=== PATIENT | male | born 1980 | race Caucasian/White ===

== ENCOUNTER → 2016-12-05 | Outpatient (CLI) | payer OTHER ==
[2014-12-11 15:05] VITALS: BP 139/67
[~2016-12-05] MED LIST: ARIP5TAB6 PO; FLUO20CA16 PO; IBUP-1060 PO
[2016-12-05 09:07] LABS: BASO % 1 % (0-3); EOS % 3 % (0-3); HEMATOCRIT 44.9 % (39.0-53.0); HEMOGLOBIN 15.7 g/dL (13.0-17.5); LYMPH # 1.5 x10^3/uL (1.0-4.8); LYMPH % 35 % (24-48); MEAN CORPUSCULAR HEMOGLOBIN 32 pg (25-35); MEAN CORPUSCULAR HGB CONC 35 g/dL (31-37); MEAN CORPUSCULAR VOLUME 91 fL (79-100); MONO % 16 % (0-9); NEUT % 45 % (31-73); PLATELET COUNT 265 x10^3/uL (140-400); RED BLOOD COUNT 4.96 x10^6/uL (4.30-5.70); RED CELL DISTRIBUTION WIDTH 12.5 % (11.5-14.5); WHITE BLOOD COUNT 4.3 x10^3/uL (4.0-11.0)
[2016-12-05 09:31] LABS: ALBUMIN 3.9 g/dL (3.4-5.0); CREATININE 1.2 mg/dL (0.7-1.3); GFR 67.8; POTASSIUM 3.8 mmol/L (3.5-5.1); TOTAL BILIRUBIN 0.4 mg/dL (0.2-1.0); TOTAL PROTEIN 7.8 g/dL (6.4-8.2)
[2016-12-05 09:32] LABS: CHOLESTEROL/HDL RATIO 4.4
[2016-12-05 09:41] LABS: FREE T4 0.91 ng/dL (0.76-1.46)
[2016-12-05 16:17] LABS: TESTOSTERONE TOTAL 538 ng/dL (348-1197)
== END | disposition home or self-care (01) ==
LOC: LAB 08:43
PROVIDERS: ATTEND Family Medicine
DX: Z13.220 Encounter for screening for lipoid disorders (principal); Z00.01 Encounter for general adult medical examination with abnormal findings; F41.8 Other specified anxiety disorders; R68.82 Decreased libido
CPT/HCPCS: 36415; 80053; 80061; 84403; 84439; 84443; 85027

== ENCOUNTER → 2016-12-08 | Outpatient (CLI) | payer OTHER ==
[2014-12-11 15:05] VITALS: BP 139/67
--- NOTE | 2016-12-08 11:11 | RAD ---
PROCEDURE MRI lumbar spine without contrast. HISTORY Low back pain and left radiculopathy for 2 weeks. TECHNIQUE Sagittal T1, sagittal T2, sagittal STIR, axial T1, and axial T2 sequences are provided. COMPARISON None. FINDINGS There is no malalignment. There is no worrisome marrow lesion or marrow edema. There is disc desiccation at L4-L5 and L5-S1. The conus medullaris is normal in signal intensity and in position. The numbering system assumes 5 lumbar type vertebral bodies. Findings by individual level are as follows: L1-L2 through L3-L4: There is no canal or foraminal compromise. L4-L5: There is a diffuse disc bulge and tiny central annular fissure. There is facet hypertrophy which is minimal. There is no canal stenosis. There is minimal foraminal narrowing. L5-S1: In addition to a diffuse disc bulge there is a left paracentral protrusion measuring 17 millimeters at the base in 3-4 millimeters in height. There is left lateral recess narrowing and the left S1 nerve root is compressed. There is minimal left foraminal narrowing. IMPRESSION Degenerative disc disease at L4-L5 and L5-S1. This includes a herniation L5-S1 narrowing the left lateral recess and compressing the S1 nerve root. Electronically signed by: Ramon Brumfield MD (December 08, 2016 11:10:28)
== END | disposition home or self-care (01) ==
LOC: MRI 11:39
PROVIDERS: ATTEND Family Medicine
DX: M51.36 Other intervertebral disc degeneration, lumbar region (principal); M51.37 Other intervertebral disc degeneration, lumbosacral region
CPT/HCPCS: 72148

== ENCOUNTER → 2017-01-11 | Outpatient (CLI) | payer OTHER ==
[2014-12-11 15:05] VITALS: BP 139/67
[~2017-01-11] MED LIST changes: +ARIP5TAB13 PO; -ARIP5TAB6 PO; +CITA40TA5 PO; +HYDR-2766 PO; +IBUP1TAB84 PO; +IOHEXOL 180 MG/ML 10 ML VIAL. ONE; +METH-37 PO; +methylPREDNISolone ACETATE 40 MG/ML VIAL. ONE; +methylPREDNISolone ACETATE 80 MG/ML VIAL. ONE
--- NOTE | 2017-01-12 03:48 | PAIN ---
DATE OF SERVICE: 01/11/2017 INITIAL CONSULTATION CHIEF COMPLAINT: Low back and left lower extremity pain. HISTORY OF PRESENT ILLNESS: This is a 36-year-old male who presents with history of pain for about 2 months without any specific injury or action that he is aware of, but has had pain similar to this in the past, but it has always cleared up after a few days or a week, but at this time, it is not clearing up significantly. The patient reports it is in the low back, radiating to the posterior gluteus, posterior lateral thigh, lateral thigh, posterior lower leg and into the lateral calf as well. The patient reports it is constant, sharp, throbbing, shooting, radiating with numbness and tingling, aching, changes during the day, worse with activity, worse with standing and walking. He has not had any weakness in the lower extremity or loss of motor function, but significant fatigability with the left leg compared to the right. The patient reports that he has taken hydrocodone as well as methocarbamol and also some ibuprofen, which all did decrease the pain, but he is having to take 3 or 4 hydrocodone at a time as well as 3 or 4 methocarbamol at a time to get any decreased pain. The patient has had physical therapy in the past. He has been doing the exercises, stretching and walking, the best he can recently, but without decrease in the pain. The patient rates his disability rating from 0 to 10, 10 being the worst, as a 7 with family and home responsibilities, 6 with recreation, 4 with occupation and social activity as well as sexual behavior and self-care and 2 with life support activities. The patient did have MRI scan of the lumbar spine, showing degenerative disk disease at L4-L5 and L5-S1 with a herniation at L5-S1, narrowing of the left lateral recess and compressing the S1 nerve root. PAST MEDICAL HISTORY: Significant for only 12-pound weight loss recently as he has been trying to lose weight and hernia repair, inguinal, in 2014. Otherwise, the patient has been in good health. CURRENT MEDICATIONS: Include citalopram, Robaxin, Duexis and hydrocodone. ALLERGIES: The patient has no known drug allergies. FAMILY HISTORY: Significant for no major medical problems or conditions that he is aware of. SOCIAL HISTORY: The patient does not smoke. Drinks alcohol occasionally. He is , lives with his spouse, has 2 children living at home and lives in [place], [place]. REVIEW OF SYSTEMS: The patient's review of systems is positive for those items mentioned in the history of present illness. All systems reviewed and otherwise negative. It is complete, full, and well documented on the patient's chart. PHYSICAL EXAMINATION: VITAL SIGNS: Today, the patient's blood pressure is 133/84, pulse 75, respirations 18, temperature 98.2 degrees Fahrenheit, height is 6 feet 3 inches, weight is 221 pounds. GENERAL: The patient is awake, alert, oriented, appropriate, very pleasant demeanor. The patient is accompanied by his spouse. HEENT: Shows normocephalic and atraumatic. Extraocular movements are intact and symmetrical. Oral cavity shows mucous membranes are moist and pink. Dentition is intact. NECK: Shows anterior throat supple without palpable lymphadenopathy noted. Swallow reflex is symmetrical. CHEST: Shows normal on inspection. Breath sounds are clear to auscultation bilaterally. HEART: Shows S1 and S2 clear. ABDOMEN: Soft, nontender, nondistended. No palpable organomegaly. No new rebound or guarding demonstrated. BACK: The patient's back shows spine grossly in the midline. Normal-appearing cervical lordotic curvature, thoracic kyphotic curvature, and lumbar lordotic curvature. No previous bruises, lesions, rashes or scars are noted. Lumbar paraspinous musculature shows symmetrical on inspection; with palpation, it shows only some mild tenderness with palpation in the low lumbar distribution bilaterally but without radiation. No tenderness over the spinous processes, sacrum or sacroiliac regions. The patient shows good rotational motion of the lumbar spine, both laterally greater than 10 degrees right and left as well as extension greater than 10 degrees, forward flexion 45 degrees without difficulty or pain reported. EXTREMITIES: Lower extremities show deep tendon reflexes at 2+ in the patellar and 1+ tendo calcaneus tendons and are equal. Motor exam is strong with 5/5 dorsiflexion, extension, quadriceps and hamstring flexion. Peripheral pulses are 2+ posterior tibial and dorsalis pedis pulses. No peripheral edema is noted. No clubbing. No cyanosis. Lower extremities are warm and dry to touch, equal in color and appearance. The patient is able to stand, stand on his toes without difficulty or loss of balance, walking with a normal-appearing gait, not using any assistive devices to ambulate. IMPRESSION: 1. This is a 36-year-old male with approximately 2-month history of increasing low back and left lower extremity pain in a radicular fashion. 2. MRI scan of the lumbar spine as noted. PLAN: Options were discussed with the patient and the patient's spouse including conservative medical management, physical therapy, interventional techniques. He would like to pursue with interventional techniques. We discussed a lumbar epidural steroid injection using description as well as anatomical models to describe the procedure. Risks were then discussed including but not limited to bleeding, infection, possibility of epidural hematoma, subsequent neurologic compromise, dural puncture, headaches, spinal cord and/or nerve damage, side effects of steroid medication and poor results regarding pain control. The patient understands and wishes to proceed. The patient will return to the clinic in approximately 2 weeks for followup. He was counseled on his return appointment, activity level and side effects to be aware of. DIAGNOSIS: Lumbar radiculopathy with lumbar degenerative disk disease and lumbar herniated disk. PROCEDURE: Lumbar epidural steroid injection in translaminar approach at the L5-S1 level using C-arm fluoroscopic guidance under sterile prep and drape using local anesthetic. MEDICATION INJECTED: Depo-Medrol 120 mg plus 10 mL of preservative-free normal saline and 2 mL of Isovue for contrast. CONDITION AT DISCHARGE: Stable. The patient tolerated the procedure well, had no complications. JARED BLANC MD DR: JONI/alejandro JOB#: [id number] / [id number] JOEL Davis MD
== END | disposition home or self-care (01) ==
LOC: PNCL 10:39
PROVIDERS: ATTEND Anesthesiology
DX: M51.16 Intervertebral disc disorders with radiculopathy, lumbar region (principal); Z72.89 Other problems related to lifestyle
CPT/HCPCS: 62323; J1030; J1040

== ENCOUNTER → 2017-01-25 | Outpatient (CLI) | payer OTHER ==
[2014-12-11 15:05] VITALS: BP 139/67
[~2017-01-25] MED LIST changes: -IOHEXOL 180 MG/ML 10 ML VIAL. ONE; -methylPREDNISolone ACETATE 40 MG/ML VIAL. ONE; -methylPREDNISolone ACETATE 80 MG/ML VIAL. ONE
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
== END | disposition home or self-care (01) ==
LOC: PNCL 10:50
PROVIDERS: ATTEND Anesthesiology
DX: M51.16 Intervertebral disc disorders with radiculopathy, lumbar region (principal); M51.26 Other intervertebral disc displacement, lumbar region
CPT/HCPCS: 99212

== ENCOUNTER → 2017-02-09 | Outpatient (CLI) | payer OTHER ==
[2014-12-11 15:05] VITALS: BP 139/67
[~2017-02-09] MED LIST changes: +IOHEXOL 180 MG/ML 10 ML VIAL. ONE; +methylPREDNISolone ACETATE 40 MG/ML VIAL. ONE; +methylPREDNISolone ACETATE 80 MG/ML VIAL. ONE
== END | disposition home or self-care (01) ==
LOC: PNCL 09:32
PROVIDERS: ATTEND Anesthesiology
DX: M51.36 Other intervertebral disc degeneration, lumbar region (principal)
CPT/HCPCS: 62323; J1030; J1040

== ENCOUNTER → 2017-02-23 | Outpatient (CLI) | payer OTHER ==
[2014-12-11 15:05] VITALS: BP 139/67
--- NOTE | 2017-02-24 01:43 | PAIN ---
DATE OF SERVICE: 02/23/2017 PROGRESS NOTE FOR PAIN CLINIC DIAGNOSES: Lumbar radiculopathy with lumbar degenerative disk disease, lumbar herniated disk. HISTORY OF PRESENT ILLNESS: The patient is a 36-year-old male who returns for followup status post lumbar epidural steroid injections x 2. The patient reports about 75% improvement overall with no further radiation in to his left leg and no stabbing, shooting pain in the left leg. He has some significant pain; however, across the low back and he has been noticing some pain on the right side lately with some positioning and moving when he first gets up in the morning. The patient reports the pain is anywhere from a 5 to an 8 on a scale of 10, averaging about 7 and it is 5 on a scale of 10 today. The patient reports it is aching, sharp, stabbing and constant in the low back. Again, no further radiation to the left lower extremity, but across the low back and more noticeable on the right side in the low back, which is worse with sitting, but better with activity and motion as well as stretching of the low back. The patient reports no new motor or sensory deficits, no new bowel or bladder incontinence or other complaints. The patient is sleeping about 6-8 hours a night, but occasionally he repositions secondary to the pain to maintain sleep. PHYSICAL EXAMINATION: VITAL SIGNS: Today, the patient's blood pressure is ____, pulse 101, respirations are 18, temperature is 97.9 degrees Fahrenheit. Height is 6 feet 3 inches, weighs 218 pounds. GENERAL: The patient is awake, alert, oriented, appropriate, very pleasant demeanor. HEENT: Head shows normocephalic, atraumatic. Extraocular movements are intact and symmetrical. Oral cavity, mucous membranes are moist and pink. Dentition is intact. NECK: Shows anterior throat supple without palpable lymphadenopathy noted. Swallow reflex is symmetrical. CHEST: Shows normal on inspection. Breath sounds clear to auscultation bilaterally. HEART: Shows S1 and S2 clear. No murmurs auscultated. ABDOMEN: Soft, nontender, nondistended. No palpable organomegaly. No rebound or guarding demonstrated. BACK: Shows spine grossly in the midline. Lumbar paraspinous muscle shows only some mild to moderate tenderness with palpation bilaterally, only diffusely. No tenderness over the sacrum or sacroiliac regions. The patient does have some mild tenderness with deep palpation over the right low lumbar distribution approximately in the L5-S1 facet region on the right side, but shows good rotational motion both laterally as well as extension and flexion without pain reported. EXTREMITIES: Lower extremities show deep tendon reflexes at 2+ patellar, 1+ tendo calcaneus tendons, are equal. Motor exam is strong with 5/5 dorsiflexion, extension, quadriceps and hamstring flexion equal. Peripheral pulses are 2+ posterior tibial and dorsalis pedis pulses. No peripheral edema is noted. Options were discussed with the patient. The patient's old chart was reviewed as his current medication regimen updated. Current review of systems updated today as well. We will proceed with the third lumbar epidural steroid injection today with fluoroscopic guidance. Risks were again discussed including, but not limited to bleeding, infection, possibility of epidural hematoma, subsequent neurologic compromise, dural puncture, headaches, spinal cord and/or nerve damage, side effects of steroid medication and poor results regarding pain control. The patient understands and wishes to proceed. The patient will return to the clinic in approximately 2 weeks for followup, was counseled on return appointment, activity level and side effects to be aware of. DIAGNOSES: Lumbar radiculopathy with lumbar herniated disk and lumbar degenerative disk disease. PROCEDURES: Lumbar epidural steroid injection in translaminar approach at L5-S1 level using C-arm fluoroscopic guidance under sterile prep and drape using local anesthetic. MEDICATIONS INJECTED: 120 mg Depo-Medrol plus 10 of preservative-free normal saline and 2 mL of Isovue for contrast. CONDITION AT DISCHARGE: Stable. The patient tolerated procedure well, had no complications. JARED BLANC MD DR: JONI/alejandro JOB#: [id number] / [id number]
== END | disposition home or self-care (01) ==
LOC: PNCL 09:44
PROVIDERS: ATTEND Anesthesiology
DX: M51.16 Intervertebral disc disorders with radiculopathy, lumbar region (principal)
CPT/HCPCS: 62323; J1030; J1040

== ENCOUNTER → 2017-03-06 | Outpatient (CLI) | payer OTHER ==
[2014-12-11 15:05] VITALS: BP 139/67
[~2017-03-06] MED LIST changes: -IOHEXOL 180 MG/ML 10 ML VIAL. ONE; -methylPREDNISolone ACETATE 40 MG/ML VIAL. ONE; -methylPREDNISolone ACETATE 80 MG/ML VIAL. ONE
--- NOTE | 2017-03-07 01:45 | PAIN ---
DATE OF SERVICE: 03/06/2017 PROGRESS NOTE FOR PAIN CLINIC DIAGNOSES: Lumbar radiculopathy with lumbar degenerative disk disease and lumbar herniated disk. HISTORY OF PRESENT ILLNESS: The patient is a 36-year-old male who returns for followup status post lumbar epidural steroid injections x 3, most recently 02/23/2017. The patient reports he did very well with this overall about a 75% to 80% improvement. The patient reports the pain in his left leg is essentially gone, still some pain, however, in the low back and he was having more significant pain on the right side low back on his last visit; however, this is resolved to about 50% as well in this region alone. The patient reports he is increasing his activity with greater ease and comfort. There was some swelling over the weekend, was doing some camping also where he was lifting some heavy items and storing them, carrying them, that kind of thing, which aggravated the pain to a moderate extent. He is still taking some oxycodone, which seems to help, but is not taking it every day. The patient reports when he does take it, it does decrease the pain by about 90%. The patient reports no new motor or sensory deficits, no new bowel or bladder incontinence or other complaints. The patient rates his pain 3-4 on a scale of 10, is dull, aching in the low back itself, sometimes sharp, but only very rarely into the left lower extremity. The patient reports no new motor or sensory deficits. No bowel or bladder incontinence. The patient reports the pain does not awake him from sleep at night, is better with lying down or sitting, worse with being up and around on his feet, doing yardwork causes some increased discomfort as well with extended flexing and bending. PHYSICAL EXAMINATION: VITAL SIGNS: The patient's blood pressure is 147/93, pulse 80, respirations 18, temperature 98.1 degrees Fahrenheit, height is 6 feet 3 inches and weight is 225 pounds. GENERAL: The patient is awake, alert, oriented, appropriate, has a very pleasant demeanor. HEENT: Shows normocephalic, atraumatic. Extraocular movements are intact, symmetrical. Oral cavity shows mucous membranes moist and pink. Dentition is intact. NECK: Shows anterior throat supple without palpable lymphadenopathy noted. Swallow reflex is symmetrical. CHEST: Shows normal on inspection. Breath sounds clear to auscultation bilaterally. HEART: Shows S1 and S2 clear. No murmurs auscultated. ABDOMEN: Soft, nontender, nondistended. No palpable organomegaly is noted. No rebound or guarding demonstrated. BACK: Shows spine grossly in the midline. Normal appearing thoracic kyphosis and lumbar lordotic curvature. Lumbar paraspinous musculature is symmetrical on inspection, with palpation shows some very mild tenderness with low lumbar palpation in the paraspinous musculature, but only diffusely without radiation, without trigger points or asymmetry. No tenderness over the sacrum or sacroiliac regions. The patient has good rotational motion both laterally as well as extension and flexion without significant increase in pain even with right lateral rotation and extension combined. EXTREMITIES: Lower extremities show deep tendon reflexes at 2+ in the patellar and tendo calcaneus tendons are 1+. Motor exam is strong with 5/5 dorsiflexion, extension, quadriceps and hamstring flexion and is symmetrical. PLAN: Options were discussed with the patient. The patient's old chart was reviewed as was his current medication regimen and updated. Current review of systems updated today as well. We will hold on any further injections at this time. We had discussed a possible right L5-S1 facet joint injection; however, his right-sided pain is improving significantly after the last epidural injection and with increased activity. The patient was encouraged to increase his activity as tolerated, but go slowly, start working out again if desired. Again, we discussed some water therapy as well as stretching and strengthening exercises. The patient was given refill prescriptions for oxycodone with instructions to try and wean this down as well. We discussed schedules for doing this also and the patient will try and adhere to this as well and will follow up in approximately 1 month and the patient will increase his activity in the meantime. JARED BLANC MD DR: JONI/alejandro JOB#: [id number] / [id number]
== END | disposition home or self-care (01) ==
LOC: PNCL 11:39
PROVIDERS: ATTEND Anesthesiology
DX: M54.16 Radiculopathy, lumbar region (principal); M47.896 Other spondylosis, lumbar region
CPT/HCPCS: 99212

== ENCOUNTER → 2017-04-03 | Outpatient (CLI) | payer OTHER ==
[2014-12-11 15:05] VITALS: BP 139/67
[~2017-04-03] MED LIST changes: +BUPIVACAINE MPF 0.25% 10 ML VIAL. ONE; +IOHEXOL 180 MG/ML 10 ML VIAL. ONE; +methylPREDNISolone ACETATE 40 MG/ML VIAL. ONE; +methylPREDNISolone ACETATE 80 MG/ML VIAL. ONE
--- NOTE | 2017-04-03 17:05 | PAIN ---
DATE OF SERVICE: 04/03/2017 DIAGNOSES: Lumbar radiculopathy with lumbar degenerative disk disease and lumbar herniated disk and lumbar spondylosis. HISTORY OF PRESENT ILLNESS: The patient is a 36-year-old male who returns for followup status post previous lumbar epidural steroid injections x 3. The patient with still some significant pain in the base of the low back bilaterally, somewhat worse on the right than the left, but present bilaterally, worse with sitting for prolonged periods, standing and walking for prolonged periods. He has been exercising and staying very active, running as well as using gym equipment. The patient reports the pain is persistent as 7 on a scale of 10. It is worst is about a 4 or 5 on a scale of 10 at its least. The patient reports as aching, sharp and tight stabbing, constant across the low back itself, less so with radiation to the lower extremities, but across the low back is the main complaint at this time. The patient reports it awakens him from sleep occasionally. He has to change positions 2 or 3 times at night to get back to sleep. PHYSICAL EXAMINATION: VITAL SIGNS: The patient's blood pressure 154/103, pulse 77, respirations 18, temperature 97.9 degrees Fahrenheit. Height is 6 feet 3 inches, weight is 225 pounds. GENERAL: The patient is awake, alert, oriented, appropriate, very pleasant demeanor. HEENT: Head shows normocephalic, atraumatic. Extraocular movements are intact and symmetrical. Oral cavity: Mucous membranes moist and pink. Dentition is intact. NECK: Shows anterior throat supple without palpable lymphadenopathy noted. Swallow reflex is symmetrical. CHEST: Shows normal on inspection. Breath sounds are clear to auscultation bilaterally. HEART: Shows S1 and S2 clear. ABDOMEN: Soft, nontender, nondistended. BACK: Shows spine grossly in midline. Lumbar paraspinous muscle shows some moderate tenderness with palpation, but only moderately and only diffusely in the lower lumbar distribution, somewhat worse on the right than the left with palpation and deep palpation to the paraspinous distribution. No tenderness over the sacrum or sacroiliac regions. The patient shows good rotation and motion of the lumbar spine with some increased tenderness in the right and left lower back with extension, but not with forward flexion. LOWER EXTREMITIES: Show deep tendon reflexes 2+ in the patellar and tendo-calcaneus tendons about 1+. Motor exam is strong with 5/5 dorsiflexion, extension, quadriceps and hamstring flexion and equal bilaterally. Options were discussed with the patient. The patient's old chart was reviewed as his current medication regimen and updated. Current review of systems updated today as well. We will proceed with bilateral L5-S1 facet joint injections today with fluoroscopic guidance. Risks were again discussed including, but not limited to bleeding, infection, possibility of epidural hematoma and subsequent neurological compromise, dural puncture, headaches, spinal cord and/or nerve damage, side effects of steroid medication and poor results regarding pain control. The patient understands and wishes to proceed. The patient will return to the clinic in approximately 2 weeks for a followup. He was counseled as to return appointment, activity level and side effects to be aware of. DIAGNOSIS: Lumbar spondylosis. PROCEDURES: Lumbar facet joint injection at L5-S1 bilaterally with C-arm fluoroscopic guidance under sterile prep and drape using local anesthetic. MEDICATIONS INJECTED: A total of 2 mL of 0.25% bupivacaine, total of 120 mg Depo-Medrol, total of 2 mL of ____ for contrast. CONDITION AT DISCHARGE: Stable. The patient tolerated procedure well, had no complications. JARED BLANC MD DR: JONI/alejandro JOB#: [id number] / [id number]
== END | disposition home or self-care (01) ==
LOC: PNCL 10:58
PROVIDERS: ATTEND Anesthesiology
DX: M51.16 Intervertebral disc disorders with radiculopathy, lumbar region (principal); M47.26 Other spondylosis with radiculopathy, lumbar region
CPT/HCPCS: 64493; J1030; J1040; J3490; 64494

== ENCOUNTER → 2017-04-11 | Outpatient (CLI) | payer OTHER ==
[2014-12-11 15:05] VITALS: BP 139/67
--- NOTE | 2017-04-11 16:27 | PAIN ---
DATE OF SERVICE: 04/11/2017 DIAGNOSES: Lumbar radiculopathy with lumbar degenerative disk disease, lumbar herniated disk and lumbar spondylosis, both lumbar and lumbosacral. HISTORY OF PRESENT ILLNESS: The patient is a 36-year-old male who returns for followup status post lumbar bilateral facet joint injections at L4-L5 and L5-S1, last seen 04/03/2017. The patient reports he is doing fairly well. Hard to say exactly how well as he was very active following the injections, but felt better for the first 2-3 days. The patient reports he is unable to determine what percentage maybe 50% or less. The patient reports still significant pain across the low back, worse in the morning when he first gets up, better when he is lying down off of his feet, can be painful with sitting and running in a car as well. The patient reports he had significant activity after the last injections, was traveling for several hours and walking quite a great distance at an amusement park over the past weekend as well with increased pain across the low back. The patient reports no further radiation into the lower extremities, but significant pain across the low back, right equal to left essentially. The patient reports no new motor or sensory deficits, no new bowel or bladder incontinence. Reports worse pain is a 9 on a scale of 10 at its worst, 7 on average and 5 at its least, 5 on a scale of 10 this morning. He reports it is burning, cramping, stabbing, shooting, sharp and tight becoming unbearable and becoming more constant as well. The patient reports no new motor or sensory deficits, no bowel or bladder incontinence. PHYSICAL EXAMINATION: VITAL SIGNS: Today, the patient's blood pressure is 155/100, pulse 81, respirations 20, temperature 97.7 degrees Fahrenheit, weight is 223 pounds. GENERAL: The patient is awake, alert, oriented, appropriate, very pleasant demeanor. HEENT: Head shows normocephalic, atraumatic. Extraocular movements are intact and symmetrical. Oral cavity, mucous membranes are moist and pink. Dentition is intact. NECK: Shows anterior throat supple without palpable lymphadenopathy noted. Swallow reflex is symmetrical. CHEST: Shows normal on inspection. Breath sounds are clear to auscultation bilaterally. HEART: Shows S1 and S2 clear. ABDOMEN: Soft, nontender, nondistended. BACK: Shows spine grossly in midline. Lumbar paraspinous muscle shows some moderate tenderness with palpation only in the middle and lower distribution, but only diffusely without specific trigger points, no radiation. The patient has full rotational motion both laterally as well as extension and flexion without difficulty. EXTREMITIES: Lower extremities show deep tendon reflexes 2+ in the patellar and 1+ tendo calcaneus tendons. Motor exam is strong with 5/5 dorsiflexion, extension, quadriceps and hamstring flexion equal bilaterally. Options were discussed with the patient and the patient's old chart was reviewed as his current medication regimen and updated. Current review of systems is updated today as well. We will proceed with bilateral L4-L5 and L5-S1 facet joints injections. Risks were again discussed including, but not limited to bleeding, infection, possibility of epidural hematoma, subsequent neurologic compromise, dural puncture, headaches, spinal cord and/or nerve damage, side effects of steroid medication and poor results regarding pain control. The patient understands and wishes to proceed. The patient will return to clinic in approximately 2 weeks for followup. She was counseled on return appointment, activity level and side effects to be aware of. We will start gabapentin 300 mg t.i.d. with instructions, side effects to be aware of discussed as well as refill the patient's oxycodone 10 mg with instructions and side effects to be aware of discussed as well. DIAGNOSIS: Lumbar spondylosis both lumbar and lumbosacral. PROCEDURE: Lumbar L4-L5 and L5-S1 facet joint injections with fluoroscopic guidance under local anesthetic using a sterile prep and drape at the L4-L5 and L5-S1 levels bilaterally. MEDICATIONS INJECTED: A total of 120 mg Depo-Medrol and total of 4 mL of 0.25% bupivacaine, total of 2 mL of Isovue for contrast. CONDITION AT DISCHARGE: Stable. The patient tolerated procedure well, had no complications. JARED BLANC MD DR: JONI/alejandro JOB#: [id number] / [id number]
== END | disposition home or self-care (01) ==
LOC: PNCL 09:24
PROVIDERS: ATTEND Anesthesiology
DX: M51.16 Intervertebral disc disorders with radiculopathy, lumbar region (principal); M47.897 Other spondylosis, lumbosacral region; M47.27 Other spondylosis with radiculopathy, lumbosacral region
CPT/HCPCS: 64493; 64494; J1030; J1040; J3490

== ENCOUNTER → 2017-04-24 | Outpatient (CLI) | payer OTHER ==
[2014-12-11 15:05] VITALS: BP 139/67
[~2017-04-24] MED LIST changes: -BUPIVACAINE MPF 0.25% 10 ML VIAL. ONE; -IOHEXOL 180 MG/ML 10 ML VIAL. ONE; -methylPREDNISolone ACETATE 40 MG/ML VIAL. ONE; -methylPREDNISolone ACETATE 80 MG/ML VIAL. ONE
--- NOTE | 2017-04-24 13:24 | PAIN ---
DATE OF SERVICE: 04/24/2017 DIAGNOSES: 1. Lumbar radiculopathy with lumbar degenerative disk disease and lumbar herniated disk. 2. Lumbar spondylosis, both lumbar and lumbosacral. HISTORY OF PRESENT ILLNESS: The patient is a 36-year-old male who returns for followup status post bilateral facet joint injections, both at L4-L5 and L5-S1 levels bilaterally, most recently seen 04/11/2017. The patient reports he did fairly well with this, about a 50% improvement or so, he is using an inversion table since his last visit and reports significant decrease in pain with this as well. Still some pain in the left lower back, worse with activity, sitting for prolonged periods or standing and walking. The patient reports otherwise no new motor or sensory deficits, no new bowel or bladder incontinence or other complaints. The patient reports pain as aching and sharp, sometimes dull but radiating mostly in and around the posterior gluteus on the left side. The patient reports the pain is 7-8 on a scale of 10 as worse, 5 on average and a 4 at its least. The patient reports it is better with the inversion table. He is also still taking some oxycodone. We discussed trying to decrease this. The patient reports he did have the bottle spill out of one of his backpacks and lost all of about 14 tablets. I informed we would refill this for him on this occasion, but to try and get away from these as he is using them as more of a crutch than he needs to. The patient is aware and agrees with this as well. The patient reports no new motor or sensory deficits, no new bowel or bladder incontinence or other complaints. PHYSICAL EXAMINATION: VITAL SIGNS: Today, his blood pressure is 132/79, pulse 77, respirations 16, temperature 98.3 degrees Fahrenheit, weight is 222 pounds. GENERAL: The patient is awake, alert, oriented, appropriate, very pleasant demeanor. HEENT: Head shows normocephalic, atraumatic. Extraocular movements are intact and symmetrical. Oral cavity shows mucous membranes moist and pink. Dentition is intact. NECK: Shows anterior throat supple. CHEST: Shows normal on inspection. Breath sounds are clear to auscultation bilaterally. HEART: Shows S1 and S2 clear. No murmurs auscultated. ABDOMEN: Soft, nontender, nondistended. No palpable organomegaly is noted. BACK: Shows spine grossly midline. Lumbar paraspinous muscle shows some moderate tenderness, more tender on the left than right, but diffusely bilaterally without radiation. The patient shows good rotational motion with some minor tenderness with extension of the lumbar spine, but not with forward flexion. Right and left lateral rotations performed without significant pain as well bilaterally. EXTREMITIES: Lower extremities show deep tendon reflexes 2+ in the patellar tendons. Motor exam is strong with 5/5 dorsiflexion, extension, quadriceps and hamstring flexion equal. Options were discussed with the patient and the patient's old chart was reviewed as his current medication regimen updated. Current review of systems updated today as well. We will hold on further injections at this time. We will refill the patient's oxycodone with 50 tablets given with instructions, side effects to be aware of. Also to be cautious with handling of medications and taking care not to lose them, etc. The patient will follow up in approximately 4 weeks or sooner if necessary, will use the inversion table as instructed. Also recommended pool therapies and water aerobics. He will look for a pool in his area as well. JARED BLANC MD DR: JONI/alejandro JOB#: [id number] / [id number]
== END | disposition home or self-care (01) ==
LOC: PNCL 10:26
PROVIDERS: ATTEND Anesthesiology
DX: M51.16 Intervertebral disc disorders with radiculopathy, lumbar region (principal); M47.896 Other spondylosis, lumbar region
CPT/HCPCS: 99212

== ENCOUNTER → 2017-05-09 | Outpatient (CLI) | payer OTHER ==
[2014-12-11 15:05] VITALS: BP 139/67
[~2017-05-09] MED LIST changes: +OXYC10TA PO
--- NOTE | 2017-05-09 23:46 | PAIN ---
DATE OF SERVICE: 05/09/2017 DIAGNOSES: Lumbar radiculopathy with lumbar degenerative disk disease, lumbar herniated disk and lumbosacral spondylosis. HISTORY OF PRESENT ILLNESS: The patient is a 36-year-old male who returns for followup status post lumbar epidural steroid injections x 3 as well as bilateral lumbar facet blocks x 2. The patient reports good results each of these at least 50% better sometimes more, but with pain still smoldering to an extent in the low back and left side where it is 8 on scale of 10. It is worst 4 on average and 3 at its least. He reports aching, sharp, tight, radiating becoming more constant, worse with standing or sitting. He has been using an inversion table recently, which has been helping significantly while he is on inversion table. Once he gets off of it, the pain returns to a moderate extent. The patient reports he stopped taking gabapentin because it was giving him rash and the rash has subsided since he discontinued it. He is still taking oxycodone 10 mg, which does help the pain significantly to decrease and he is able to do his daily activities. The patient is taking it sparingly as best he can usually 1-2 pills a day if that. The patient reports no new motor or sensory deficits, no new bowel or bladder incontinence or other complaints, still significant pain; however, in the left low back. It is radiating to the posterior gluteus and the thigh, mostly in the back and gluteus itself. PHYSICAL EXAMINATION: VITAL SIGNS: Today, blood pressure is 139/102, pulse 68, respirations are 16, temperature is 98.0 degrees Fahrenheit, weight is 221 pounds. GENERAL: The patient is awake, alert, oriented, appropriate, very pleasant demeanor. HEENT: Head shows normocephalic, atraumatic. Extraocular movements are intact, symmetrical. Oral cavity, mucous membranes are moist and pink. Dentition is intact. NECK: Shows anterior throat supple without palpable lymphadenopathy noted. Swallow reflex is symmetrical. CHEST: Shows normal on inspection. Breath sounds are clear to auscultation bilaterally. HEART: Shows S1 and S2 clear. ABDOMEN: Soft, nontender, nondistended. No palpable organomegaly is noted. BACK: Shows spine grossly midline. Normal-appearing thoracic kyphosis and lumbar lordotic curvature. Lumbar paraspinous muscle shows symmetrical on inspection with palpation shows some mild to moderate tenderness in the lower lumbar distribution, more in the left than the right, but only diffusely without radiation. The patient has good rotation motion both laterally as well as full extension, full flexion. Mild tenderness within the left low back with extension only, but not with forward flexion, right and left lateral rotation. Lower extremities. Deep tendon reflexes at 2+ in the patellar, 1+ tendo calcaneus tendons. Motor exam is strong with 5/5 dorsiflexion, extension, quadriceps and hamstring flexion and equal bilaterally. Peripheral pulses are 2+. Options were discussed with the patient. The patient's old chart was reviewed as his current medication regimen updated. Current review of systems updated today as well. We will hold on any further injections at this time. The patient was encouraged to continue using his inversion table, also strengthening and stretching exercises that he has done with the therapy exercises. Also discussed possible neurosurgical evaluation just for an opinion regarding herniated L5-S1 disk on the left as he does have some significant left-sided symptoms, which are persistent but without any motor loss. He is interested in pursuing this as well. We will refill the patient's oxycodone with instructions and side effects to be aware of 10 mg with only 50 tablets dispensed. The patient will follow up in approximately 2 weeks as scheduled. JARED BLANC MD DR: JONI/alejandro JOB#: [id number] / [id number] MARY Chavez MD
== END | disposition home or self-care (01) ==
LOC: PNCL 12:51
PROVIDERS: ATTEND Anesthesiology
DX: M51.16 Intervertebral disc disorders with radiculopathy, lumbar region (principal); M47.27 Other spondylosis with radiculopathy, lumbosacral region; R21 Rash and other nonspecific skin eruption
CPT/HCPCS: 99212

== ENCOUNTER → 2017-05-31 | Outpatient (CLI) | payer OTHER ==
[2014-12-11 15:05] VITALS: BP 139/67
--- NOTE | 2017-05-31 21:22 | PAIN ---
DATE OF SERVICE: 05/31/2017 DIAGNOSES: 1. Lumbar radiculopathy with lumbar degenerative disk disease, lumbar herniated disk. 2. Spondylosis, lumbar and lumbosacral. HISTORY OF PRESENT ILLNESS: The patient is a 36-year-old male who returns for followup status post bilateral lumbar epidural steroid injections and facet joint injections. The patient did very well with these with generally a 50-75% improvement each time, most recent was 04/11/2017. We had held the injections after that, so he is doing quite a bit better, still using an inversion table daily, which has decreased in the pain as well. He has been stretching, exercising, using heat and massage therapies and stretching on his own as well. The patient reports the pain is still in the low back, more on the left side than the right, is aching and tight with some radiating pain occasionally, rates it as a 7 on a scale of 10 at its worst, 4-5 on average and 3 at its least. The patient reports no new motor or sensory deficits or other complaints, but still has some significant pain in the low back, again significantly improved. He has been taking some oxycodone 10 mg and we discussed weaning this down as well and he is interested in pursuing this also. The patient reports no new changes with motor or sensory deficits, bowel or bladder incontinence. PAST MEDICAL HISTORY: Significant for inguinal hernia repair in 2014. CURRENT MEDICATIONS: Include Duexis, Robaxin and oxycodone. ALLERGIES: The patient has no known drug allergies. FAMILY HISTORY: Significant for no major medical problems that he is aware of. SOCIAL HISTORY: The patient drinks alcohol occasionally and does not smoke, lives locally, has 2 children at home. REVIEW OF SYSTEMS: The patient's review of systems is positive for those items mentioned in the history of present illness. All systems reviewed and otherwise negative. It is completed in full, well documented on the patient's chart. PHYSICAL EXAMINATION: VITAL SIGNS: Today, the patient's blood pressure is 146/98, pulse is 81, respirations 18, temperature is 98.2 degrees Fahrenheit, height is 6 feet 3 inches, weight is 222 pounds. GENERAL: The patient is awake, alert, oriented, appropriate, very pleasant demeanor. HEENT: Shows normocephalic, atraumatic. Extraocular movements are intact, symmetrical. Oral cavity, mucous membranes are moist and pink. Dentition is intact. NECK: Shows anterior throat supple without palpable lymphadenopathy noted. Swallow reflex is symmetrical. CHEST: Shows normal with inspection. Breath sounds clear to auscultation bilaterally. HEART: Shows S1 and S2 clear. No murmurs auscultated. ABDOMEN: Soft, nontender, nondistended. No palpable organomegaly. No rebound or guarding demonstrated. BACK: Shows spine grossly in midline. Normal appearing thoracic kyphosis and lumbar lordotic curvature. Lumbar paraspinous muscles show symmetrical on inspection, with palpation show some moderate tenderness diffusely in the lower lumbar distribution, more in the left than the right, but again is symmetrical. No tenderness with palpation over the spinous processes, sacrum or sacroiliac regions. The patient shows good rotational motion with some mild tenderness with extension and left lateral rotation, but not with right lateral rotation or forward flexion. EXTREMITIES: Lower extremities show deep tendon reflexes 2+ in the patellar and tendo calcaneus tendons are 1+. Motor exam is strong with 5/5 dorsiflexion, extension, quadriceps and hamstring flexion. Peripheral pulses are 2+ and equal bilaterally. No peripheral edema is noted. Options are discussed with the patient and the patient's old chart was reviewed, his current medication regimen updated. Current review of systems updated today as well. We will refill the patient's oxycodone at 10 mg for 120 tablets and discussed that we will have him make this last through the end of the year, over the next just over 2 months, and the patient will wean these down as we discussed in some detail today. The patient will continue to use his inversion table as well as stretching and strengthening exercises, heat and massage therapies. Discussed possibility of returning for repeat facet injections if necessary, but at this time the patient is doing fairly well with his current regimen and we will continue this at this time. JARED BLANC MD DR: JONI/alejandro JOB#: [id number] / [id number]
== END | disposition home or self-care (01) ==
LOC: PNCL 11:03
PROVIDERS: ATTEND Anesthesiology
DX: M51.16 Intervertebral disc disorders with radiculopathy, lumbar region (principal); M51.26 Other intervertebral disc displacement, lumbar region; M47.896 Other spondylosis, lumbar region
CPT/HCPCS: 99212

== ENCOUNTER → 2017-06-27 | Outpatient (CLI) | payer OTHER ==
[2014-12-11 15:05] VITALS: BP 139/67
[~2017-06-27] MED LIST changes: +BUPIVACAINE MPF 0.25% 10 ML VIAL. ONE; +IOHEXOL 180 MG/ML 10 ML VIAL. ONE; +NAPR1TAB21 PO; +methylPREDNISolone ACETATE 40 MG/ML VIAL. ONE; +methylPREDNISolone ACETATE 80 MG/ML VIAL. ONE
--- NOTE | 2017-06-27 14:14 | PAIN ---
DATE OF SERVICE: 06/27/2017 DIAGNOSES: Lumbar radiculopathy with lumbar degenerative disk disease, lumbar herniated disk with lumbar spondylosis and lumbosacral spondylosis. HISTORY OF PRESENT ILLNESS: The patient is a 36-year-old male who returns for followup, last seen on 05/31/2017. The patient had undergone facet joint injections x 2, April 03 and April 11. Also, he had been discussing physical therapies. He has been doing inversion table at home on his own as well as stretching and strengthening exercises, heat and ice applications. The patient reports that he has been doing fairly well until the last week or so. He was playing with his daughter and bent down and he had some twisting and weightbearing at the same time to his left side, caused some significant pain, which caused him to be lightheaded and nauseous at that time with electrical lightning bolt sensation in the low back itself radiating to the posterior gluteus, worse on the left than the right, but present bilaterally. The patient reports since that time, he is unable to get more than 1 or 2 hours of sleep at night. For about the past week, has had increased pain with walking, standing and even first thing when he gets out of bed in the morning, the pain is there and across the low back. The patient reports it is an 8-9 on a scale of 10 at its worst, 7 on average and a 6 on a scale of 10 at its least, is a 7 today. The patient reports radiating, constant, cramping, stabbing, aching, unbearable, becoming more constant, more severe. The patient reports no new motor or sensory deficits, no new bowel or bladder incontinence, but still significant pain as noted. PHYSICAL EXAMINATION: GENERAL: Today, the patient's blood pressure is 122/81, pulse 72, respirations are 18, temperature 97.8 degrees Fahrenheit, weight is 222 pounds. GENERAL: The patient is awake, alert, oriented, appropriate, very pleasant demeanor. HEENT: Head shows normocephalic, atraumatic. Extraocular movements are intact, symmetrical. Oral cavity: Mucous membranes moist and pink. Dentition is intact. NECK: Shows anterior throat supple without palpable lymphadenopathy noted. Swallow reflex is symmetrical. CHEST: Shows normal on inspection. Breath sounds are clear to auscultation bilaterally. HEART: Shows S1, S2 clear. No murmurs auscultated. ABDOMEN: Soft, nontender, nondistended. No palpable organomegaly is noted. No rebound or guarding demonstrated. BACK: Shows spine grossly in the midline. Lumbar paraspinous distribution shows normal curvature with a normal appearing lumbar paraspinous musculature and symmetrical, with palpation shows some moderate tenderness, only diffusely in the middle and lower distribution of paraspinous muscles with left essentially equal to right. Now, rotational motion shows good lateral rotation greater than 10 degrees, extension at 10 degrees causes increased pain across the low back, worse on the left than the right, but present bilaterally. Forward flexion decreases his pain, but is not relieved completely. EXTREMITIES: Lower extremities show deep tendon reflexes 2+ in the patellar and tendo calcaneus tendons are 1+. Motor exam is strong with 5/5 dorsiflexion, extension, quadriceps and hamstring flexion and symmetrical. Peripheral pulses are 2+ in the posterior tibial and no peripheral edema is noted bilaterally. Options were discussed with the patient. The patient's old chart was reviewed. His current medication regimen updated. Current review of systems updated today as well. We will proceed with bilateral L4-L5 and L5-S1 facet joint injections with fluoroscopic guidance. Risks were again discussed including, but not limited to bleeding, infection, possibility of epidural hematoma, subsequent neurologic compromise, dural puncture, headaches, spinal cord and/or nerve damage, side effects of steroid medication and poor results regarding pain control. The patient understands and wishes to proceed. The patient will return to clinic in approximately 2 weeks for followup. We will encourage the patient to continue with inversion table. We talked about increasing his anti-inflammatories. He is only taking Duexis twice daily, to increase that to 3 times daily with stretching and strengthening exercises and also discussed a lumbar support brace and we will have the patient fitted for one of these to see if this will help when he is doing some increased activity at home as well as at work. The patient also required about additional oxycodone. We discussed this on his last visit in May and agreed that we would not refill any oxycodone until August 06. I told the patient I would hold firm on this and will speak for his best interest. The patient verbally understands and agrees. We will plan on return to clinic in approximately 2 weeks for followup. Discussed the patient's herniated disk as well at the L5-S1 level as he has seen Neurosurgery and trying to avoid surgery for this pain condition; however, we will try another round of epidural steroid injections in the future as well and see if this may afford some help. Again, the patient will continue with physical therapies on his own, inversion table, back brace to be obtained soon and increase Duexis to 3 times daily. DIAGNOSES: Lumbar radiculopathy with lumbar degenerative disk disease, herniated lumbar disk and lumbar spondylosis and lumbosacral spondylosis. PROCEDURE: Bilateral L4-L5 and L5-S1 facet joint injections using C-arm fluoroscopic guidance under sterile prep and drape using local anesthetic. MEDICATION INJECTED: A total of 120 mg Depo-Medrol plus a total of 4 mL of 0.25% bupivacaine and a total of 2 mL of Isovue for contrast. CONDITION AT DISCHARGE: Stable. The patient tolerated the procedure well, had no complications. JARED BLANC MD DR: JONI/alejandro JOB#: [id number] / [id number]
== END | disposition home or self-care (01) ==
LOC: PNCL 08:09
PROVIDERS: ATTEND Anesthesiology
DX: M51.16 Intervertebral disc disorders with radiculopathy, lumbar region (principal); M47.26 Other spondylosis with radiculopathy, lumbar region
CPT/HCPCS: 64493; 64494; J1030; J1040; J3490

== ENCOUNTER → 2017-07-16 | Outpatient (CLI) | payer OTHER ==
[2014-12-11 15:05] VITALS: BP 139/67
[~2017-07-16] MED LIST changes: -BUPIVACAINE MPF 0.25% 10 ML VIAL. ONE
--- NOTE | 2017-07-16 13:17 | PAIN ---
DATE OF SERVICE: 07/16/2017 DIAGNOSES: Lumbar radiculopathy with lumbar degenerative disk disease, lumbar herniated disk and spondylosis. HISTORY OF PRESENT ILLNESS: The patient is a 36-year-old male who returns for followup status post bilateral lumbar facet joint injections as well as previous lumbar epidural steroid injection. The patient has done well with each of these after his last lumbar facet joint injections and does have significant pain in the first few days. Then the pain decreased to about a 40% reduction and is still at that level. Now, the patient reports still some spasticity in his back. He has been using an inversion table as well and does some stretching and strengthening exercises. He is wearing a back brace as well, which he feels helps when he is doing some yard work or more strenuous activities. The patient reports otherwise no new motor or sensory deficits, no new bowel or bladder incontinence, but still significant pain in the low back and left lower extremity radiating to the posterior gluteus, posterior thigh, posterior calf to the level of the foot on the left side. It is mostly noticeable at night, awaken him from sleep about every 1-2 hours. He has to reposition and get out of bed to try and get a comfortable position. The patient reports no new motor or sensory deficits, no new bowel or bladder incontinence. The patient rates his pain as 8 on a scale of 10 at its worse, 4-5 on average and 3 at its least and is a 4 today. The patient reports it is aching, tight, radiating and somewhat constant again, much worse on the left side than the right. PHYSICAL EXAMINATION: VITAL SIGNS: The patient's blood pressure is 147/104, pulse 90, respirations 18, temperature 97.8 degrees Fahrenheit, weight is 227 pounds. GENERAL: The patient is awake, alert, oriented, appropriate, very pleasant demeanor. HEENT: Head shows normocephalic, atraumatic. Extraocular movements are intact, symmetrical. Oral cavity: Mucous membranes moist and pink. Dentition is intact. NECK: Shows anterior throat supple without palpable lymphadenopathy noted. Swallow reflex is symmetrical. CHEST: Shows normal on inspection. Breath sounds clear to auscultation bilaterally. HEART: Shows S1, S2 clear. No murmurs auscultated. ABDOMEN: Soft, nontender, nondistended. No palpable organomegaly is noted. No rebound or guarding demonstrated. BACK: Shows spine grossly in midline. Normal appearing thoracic kyphosis and lumbar lordotic curvature. Lumbar paraspinous musculature shows normal on appearance with palpation shows some mild tenderness diffusely to moderate tenderness in the low lumbar distribution, more on the left than the right, but no tenderness over the sacrum or sacroiliac regions or the spinous processes and no radiation with rotational motion, which is full at greater than 10 degrees right and left as well as full extension, greater than 10 degrees, forward flexion at 45 degrees without significant pain reported. EXTREMITIES: Lower extremities show deep tendon reflexes at 2+ in the patellar, 1+ tendo-calcaneus tendons are equal. Motor exam is strong with 5/5 dorsiflexion and extension bilaterally. Peripheral pulses are 2+ posterior tibial. No peripheral edema is noted bilaterally. Options were discussed with the patient. The patient's old chart was reviewed as his current medication regimen and updated. Current review of systems is updated today as well. We will proceed with a lumbar epidural steroid injection as the first in this series. Risks were again discussed including, but not limited to bleeding, infection, possibility of epidural hematoma, subsequent neurologic compromise, dural puncture, headaches, spinal cord and/or nerve damage, side effects of steroid medication and poor results regarding pain control. The patient understands and wished to proceed. The patient will return to clinic in approximately 2 weeks for followup. He was counseled on return appointment, activity level and side effects to be aware of. DIAGNOSIS: Lumbar radiculopathy with lumbar degenerative disk disease, lumbar herniated disk. PROCEDURE: Lumbar epidural steroid injection, translaminar approach L5-S1 level using C-arm fluoroscopic guidance under sterile prep and drape using local anesthetic. MEDICATION INJECTED: A total of 120 mg Depo-Medrol plus 10 mL of preservative-free normal saline and 2 mL of Isovue for contrast. CONDITION AT DISCHARGE: Stable. The patient tolerated procedure well, had no complications. JARED BLANC MD DR: [email or web address]/[email or web address] JOB#: [id number] / [id number]
== END | disposition home or self-care (01) ==
LOC: PNCL 09:42
PROVIDERS: ATTEND Anesthesiology
DX: M51.16 Intervertebral disc disorders with radiculopathy, lumbar region (principal); M47.26 Other spondylosis with radiculopathy, lumbar region; Z98.890 Other specified postprocedural states
CPT/HCPCS: 62323; J1030; J1040

== ENCOUNTER → 2017-09-06 | Outpatient (CLI) | payer OTHER ==
[~2017-09-06] MED LIST changes: -ARIP5TAB13 PO; -CITA40TA5 PO; -FLUO20CA16 PO; -HYDR-2766 PO; -IBUP-1060 PO; -IBUP1TAB84 PO; +IOHEXOL 180 MG/ML 10 ML VIAL.; -IOHEXOL 180 MG/ML 10 ML VIAL. ONE; -METH-37 PO; -NAPR1TAB21 PO; -OXYC10TA PO; +methylPREDNISolone ACETATE 40 MG/ML VIAL.; -methylPREDNISolone ACETATE 40 MG/ML VIAL. ONE; +methylPREDNISolone ACETATE 80 MG/ML VIAL.; -methylPREDNISolone ACETATE 80 MG/ML VIAL. ONE
== END | disposition home or self-care (01) ==
LOC: PNCL 07:59
DX: M51.16 Intervertebral disc disorders with radiculopathy, lumbar region (principal); M47.26 Other spondylosis with radiculopathy, lumbar region
CPT/HCPCS: 62323; J1030; J1040; Q9965

== ENCOUNTER → 2017-10-10 | Outpatient (CLI) | payer OTHER | END | disposition home or self-care (01) | LOC: KCIC MRI 12:47 | DX: M51.26 Other intervertebral disc displacement, lumbar region (principal); K45.8 Other specified abdominal hernia without obstruction or gangrene | CPT/HCPCS: 72148 ==

== ENCOUNTER → 2017-10-22 | Outpatient (CLI) | payer OTHER ==
[2017-10-22 15:50] LABS: ADD MAN DIFF? NO
[2017-10-22 15:54] LABS: BASO % 1 % (0-3); EOS # 0.1 x10^3/uL (0.0-0.7); EOS % 3 % (0-3); HEMATOCRIT 45.5 % (39.0-53.0); HEMOGLOBIN 15.8 g/dL (13.0-17.5); LYMPH # 1.1 x10^3/uL (1.0-4.8); LYMPH % 23 % (24-48); MEAN CORPUSCULAR HEMOGLOBIN 32 pg (25-35); MEAN CORPUSCULAR HGB CONC 35 g/dL (31-37); MEAN CORPUSCULAR VOLUME 93 fL (79-100); MONO # 0.5 x10^3/uL (0.0-1.1); MONO % 10 % (0-9); NEUT # 3.1 x10^3uL (1.8-7.7); NEUT % 63 % (31-73); PLATELET COUNT 249 x10^3/uL (140-400); RED CELL DISTRIBUTION WIDTH 12.8 % (11.5-14.5); WHITE BLOOD COUNT 4.9 x10^3/uL (4.0-11.0)
[2017-10-22 16:32] LABS: ALBUMIN 3.9 g/dL (3.4-5.0); ALK PHOS 72 U/L (46-116); ALT (SGPT) 37 U/L (16-63); ANION GAP 7 (6-14); AST (SGOT) 32 U/L (15-37); BLOOD UREA NITROGEN 11 mg/dL (8-26); BUN/CREATININE RATIO 12 (6-20); CALCIUM 9.4 mg/dL (8.5-10.1); CARBON DIOXIDE 31 mmol/L (21-32); CHLORIDE 102 mmol/L (98-107); CREATININE 0.9 mg/dL (0.7-1.3); GFR 93.9; GLUCOSE 96 mg/dL (70-99); POTASSIUM 4.5 mmol/L (3.5-5.1); SODIUM 140 mmol/L (136-145); TOTAL BILIRUBIN 0.4 mg/dL (0.2-1.0); TOTAL PROTEIN 7.8 g/dL (6.4-8.2)
[2017-10-23 02:19] LABS: MRSA BY PCR Negative (Negative)
== END | disposition home or self-care (01) ==
LOC: SURGPAT 13:33
DX: Z01.818 Encounter for other preprocedural examination (principal); M51.16 Intervertebral disc disorders with radiculopathy, lumbar region
CPT/HCPCS: 36415; 80053; 85025; 87641

== ENCOUNTER 2017-11-01 07:19 | Day surgery (SDC) | payer OTHER ==
[~2017-11-01 07:19] MED LIST changes: -IOHEXOL 180 MG/ML 10 ML VIAL.; +LIDOCAINE 1% PF 2 ML VIAL. ID; +fentaNYL PF VIAL 100 MCG/2 ML VIAL IV; -methylPREDNISolone ACETATE 40 MG/ML VIAL.; -methylPREDNISolone ACETATE 80 MG/ML VIAL.
[2017-11-01] MEDS ORDERED: PROPOFOL 20 ML IV (07:42)
[2017-11-01] MEDS ORDERED: PROPOFOL 50 ML IV ×2 (07:42→10:06)
[2017-11-01] MEDS ORDERED: fentaNYL PF VIAL 100 MCG/2 ML VIAL (07:42)
[2017-11-01] MEDS ORDERED: REMIFENTANIL 2 MG VIAL. IV (07:42)
[2017-11-01] MEDS ORDERED: LIDOCAINE 2% PF Vial for OR 5 ML VIAL. (07:42)
[2017-11-01] MEDS ORDERED: SUCCINYLCHOLINE 200 MG/10 ML VIAL. (07:43)
[2017-11-01] MEDS ORDERED: ROCURONIUM 50 MG/5 ML VIAL. (07:43)
[2017-11-01] MEDS: IV RINGERS,LACTATED 1000ML 1,000 ML IV (07:54)
[2017-11-01] MEDS: BACITRACIN 50,000 UNIT in IV NORMAL SALINE 1000ML BAG 1,000 ML IRR (09:28)
[2017-11-01] MEDS: KETOROLAC 60 MG/2 ML INJ FOR OR. (09:28)
[2017-11-01] MEDS: THROMBIN TOPICAL 20,000 UNIT SPRAY.SYRN KIT TP (09:28)
[2017-11-01] MEDS: GELATIN SPONGE SIZE 100. (09:28)
[2017-11-01] MEDS: BUPIVAC MPF-EPI 0.5%-1:200000 30 ML VIAL. INJ (09:28)
[2017-11-01] MEDS ORDERED: ONDANSETRON PF 4 MG/2 ML VIAL. (09:30)
[2017-11-01] MEDS ORDERED: DESFLURANE > 120 MINUTES IH (09:30)
[2017-11-01] MEDS ORDERED: DEXAMETHASONE SOD PHOS 20 MG/5 ML VIAL. (09:30)
[2017-11-01] MEDS: PROCHLORPERAZINE 10 MG/2 ML VIAL. IV (11:10)
[2017-11-01] MEDS: fentaNYL PF VIAL 100 MCG/2 ML VIAL IV ×4 (11:10→11:52)
[2017-11-01] MEDS: MORPHINE SULFATE 4 MG/ML DISP.SYRIN. IV ×3 (11:18→11:43)
[2017-11-01] MEDS ORDERED: oxyCODONE IR 5 MG TABLET PO (11:45)
[2017-11-01] MEDS: oxyCODONE IR 5 MG TABLET PO (12:13)
[2017-11-01] MEDS ORDERED: HYDROmorphone 2 MG/ML VIAL (12:18)
[2017-11-01] MEDS: HYDROmorphone 2 MG/ML VIAL IV ×4 (12:21→12:55)
== END 2017-11-01 13:46 | disposition home or self-care (01) ==
LOC: SURG 07:19
DX: M51.17 Intervertebral disc disorders with radiculopathy, lumbosacral region (principal); M51.27 Other intervertebral disc displacement, lumbosacral region; F32.9 Major depressive disorder, single episode, unspecified; F41.9 Anxiety disorder, unspecified; Z79.891 Long term (current) use of opiate analgesic; Z79.899 Other long term (current) drug therapy
CPT/HCPCS: 63030; 76000; 97161-GP; J0330; J0780; J1100; J1170; J1885; J2270; J2405; J2704; J3010; J3490; J7030